=== PATIENT | female | born 1965 | race Caucasian/White ===

== ENCOUNTER 2018-02-27 16:16 | Observation (INO) ==
[2018-02-27] MEDS: 0.9 % Sodium Chloride 1,000 ML IVC ONE ×2 (16:49→19:14)
[2018-02-27] MEDS ORDERED: Ondansetron 4 MG/2 ML VIAL IVP ONE (16:50)
[2018-02-27] MEDS ORDERED: 0.9 % Sodium Chloride 1,000 ML IVC ONE ×3 (16:50→21:07)
--- NOTE | 2018-02-27 16:56 | Emergency Department Note ---
Disposition Clinical Impression: Dehydration Diabetic ketoacidosis Qualifiers: Diabetes mellitus type: type 2 Diabetes mellitus complication detail: without coma Qualified Code(s): E11.10 - Type 2 diabetes mellitus with ketoacidosis without coma Disposition: Admitted As Inpatient Condition: Serious Time of Disposition: 17:51 General Adult HPI - General Chief complaint: ED General Medical Stated complaint: HIGH BLOOD SUGAR Time Seen by Provider: 02/27/18 16:48 Source: patient, EMS Mode of arrival: EMS Limitations: no limitations Nursing Notes Reviewed: Yes Vital Signs Reviewed: Yes - History of Present Illness HPI Narrative: Patient with a history of diabetes who takes pills as well as Lantus. She is not been taking her medicine regularly for about 5 days. For the past couple of days she has been feeling sick and says her sugars have been running high. Pt Subjective Complaint: Vomiting and feeling weak Onset (ago): day(s) (Several days) Location: other (Generalized) Pain Scale: 10 Consistency: constant, Worsening Improves with: nothing Worsens with: nothing Associated symptoms: Reports: nausea/vomiting. Denies: fever/chills - Related Data Home Medications Medication Instructions Recorded Confirmed Glimepiride [Amaryl] 5 mg PO 0800 08/24/16 02/27/18 Alprazolam [Xanax] 2 mg PO BID 09/10/16 02/27/18 Metoprolol [Lopressor] 12.5 mg PO QAM 09/10/16 02/27/18 Quinapril HCl [Accupril] 20 mg PO QAM 09/10/16 02/27/18 Gabapentin [Neurontin] 100 mg PO HS 12/02/16 02/27/18 Dapagliflozin/Metformin HCl 1 each PO DAILY 04/26/17 02/27/18 [Xigduo Xr 10 mg-1,000 mg Tab] Cyclobenzaprine [Flexeril] 10 mg PO HS 08/28/17 02/27/18 Dulaglutide [Trulicity] 1.5 mg SQ QWEEK 08/28/17 02/27/18 Previous Rx's Medication Instructions Recorded Albuterol Sulfate [Albuterol 1 puff IH Q4HR #1 hfa.aer.ad 08/28/17 Inhaler] Benzonatate [Tessalon] 100 mg PO TID #15 capsule 08/28/17 Budesonide [Pulmicort Flexhaler 90 mcg IH DAILY #1 aer.pow.ba 08/28/17 90mcg] Ondansetron HCl [Zofran] 4 mg PO TID #15 tablet 08/28/17 Allergies Allergy/AdvReac Type Severity Reaction Status Date / Time Sulfa (Sulfonamide Allergy See Verified 02/27/18 16:19 Antibiotics) Comments metformin AdvReac Diarrhea Verified 02/27/18 16:19 All systems ED: reviewed and negative except as stated. Constitutional: Denies: fever, chills ENT ED: Denies: ear pain, throat pain, congestion Cardiovascular: Denies: chest pain, palpitations Respiratory: Reports: dyspnea (Mild). Denies: cough Gastrointestinal: Reports: nausea, vomiting. Denies: abdominal pain, diarrhea Genitourinary: Denies: urgency, dysuria Integumentary: Denies: rash Neurological: Reports: weakness (Generalized weakness). Denies: headache Endocrine: Reports: fatigue Past Medical History - Past Medical History Attestation: Yes The following information was validated with the patient. Source: patient, old records reviewed, nursing notes reviewed Medical history: Reports: arthritis, asthma, COPD, diabetes, GERD, hyperlipidemia, hypertension, other Surgical history: Reports: non-contributory Psychiatric history: Reports: depression - Social History Smoking Status: Never smoker Smokeless Tobacco Status: No Alcohol use: Reports: none Drug use: Reports: none Physical Exam - General Limitations: no limitations General appearance: lethargic, other (Patient is answering questions appropriately and following commands appropriately) - Head Head exam: atraumatic, normocephalic, normal inspection - Eye Eye exam: Present: normal appearance, PERRL, EOMI. Absent: scleral icterus, conjunctival injection - ENT ENT exam: mucous membranes dry, normal external ear exam - Neck Neck exam: Present: normal inspection, full ROM, trachea midline. Absent: meningismus - Chest Chest inspection: Present: normal inspection, symmetric chest wall rise. Absent : tenderness - Respiratory Respiratory exam: Present: normal lung sounds bilaterally. Absent: respiratory distress, wheezes - Cardiovascular Cardiovascular exam: Present: normal rhythm, tachycardia, normal heart sounds - Abdominal Exam Abdominal exam: Present: soft, Non-Tender, normal bowel sounds - Extremities Exam Extremities exam: Present: normal inspection. Absent: pedal edema - Neurological Exam Neurological exam: Present: alert (But sluggish), oriented X3 - Psychiatric Psychiatric exam: Present: normal affect, normal mood - Skin Skin exam: Present: warm, dry. Absent: rash Course Course Narrative: Patient presents feeling ill over the past couple of days with nausea and vomiting and generalized weakness. On physical exam shows very dry and she is a little bit sluggish in response. Accu-Chek was skyhigh. She looks like DKA. We will get a workup going. I am ordering IV fluids. We will evaluate for other possibilities as well. Disposition will be based on diagnostic results and reevaluation. - Reevaluation(s) Reevaluation #1: DKA is confirmed. Patient is gotten some IV fluids. We will start an insulin drip. I will talk to the hospitalist for admission. Time: 17:49 - Consultations Consultation #1: Dr. Guillory, hospitalist - I discussed the case with the hospitalist. He is accepting the patient for admission. Time: 17:50 Vital Signs Temperature 97.0 F L 02/27/18 16:21 Pulse Rate 112 02/27/18 16:21 Respiratory Rate 36 02/27/18 16:21 Blood Pressure 126/75 02/27/18 16:21 O2 Sat by Pulse Oximetry 99 02/27/18 16:21 Temperature 98.8 F 02/27/18 20:41 Pulse Rate 116 02/27/18 20:41 Respiratory Rate 18 02/27/18 20:41 Blood Pressure 112/61 02/27/18 20:41 O2 Sat by Pulse Oximetry 97 02/27/18 20:41 Oxygen Delivery Oxygen Delivery Room Air Medical Decision Making - Medical Records Medical records reviewed: Yes I reviewed the patient's medical records. - Lab Data Lab results reviewed: Yes I reviewed the patient's lab results. Result diagrams: 02/27/18 17:08 02/27/18 17: Lab Results 02/27/18 02/27/18 02/27/18 Range/Units 17:08 17:08 17:08 WBC 15.7 H (4.3-11.1) K/mcL RBC 4.95 (3.82-4.97) M/mcL Hgb 14.8 (11.5-15.4) g/dL Hct 46.2 H (35.3-44.9) % MCV 93.3 (83.0-100.0) fL MCH 29.9 (28.0-33.3) pg MCHC 32.0 (31.6-35.5) g/dL RDW 12.7 (11.5-14.5) % Plt Count 341 (140-400) K/mcL MPV 10.5 (9.4-12.4) fL Immature Gran % 5.7 H (0-4) % Seg Neutrophils % 72.2 % Lymphocytes % 9.4 % Monocytes % 12.1 % Eosinophils % 0.1 % Basophils % 0.5 % Neutrophils # 11.3 H (1.6-8.9) K/mcL Lymphocytes # 1.5 (0.6-4.6) K/mcL Monocytes # 1.9 H (0.0-1.3) K/mcL Eosinophils # 0.0 (0.0-0.6) K/mcL Basophils # 0.1 (0.0-0.2) K/mcL Toxic Granulation Present A (Not Present) Platelet Estimate Normal (Normal) Polychromasia 1+ A (Not Present) Anisocytosis 1+ A (Not Present) Sample Site ABG pH (7.32-7.45) pH Units ABG pCO2 (35-45) mmHg ABG pO2 (85-104) mmHg ABG HCO3 (21-27) mEq/L ABG Total CO2 (20-26) mEq/L ABG O2 Saturation (95-98) % ABG Base Excess (-2 to 3) mEq/L Tim Test O2 Delivery Device Sodium 137 (136-145) mEq/L Potassium 5.5 H (3.5-5.1) mEq/L Chloride 103 (98-107) mEq/L Carbon Dioxide 12 L (23-29) mEq/L BUN 49 H (6-20) mg/dL Creatinine 2.03 H (0.60-1.20) mg/dL Est GFR ( Amer) 31 L (> 60) Est GFR (Non-Af Amer) 26 L (> 60) BUN/Creatinine Ratio 24 (6-26) Glucose 920 H* (70-105) mg/dL Calculated Osmolality 343 H (280-300) Lactic Acid (0.5-2.2) mmol/L Calcium 10.2 (8.6-10.3) mg/dL Troponin I (< 0.04) ng/mL Beta-Hydroxybutyric Acd > 2.00 H (0.02-0.27) mmol/L Urine Color (Yellow) Urine Clarity (Clear) Urine pH (5.0-8.0) pH Units Ur Specific [place] (1.010-1.025) Urine Protein (Neg-Trace) mg/dL Urine Glucose (UA) (Normal) mg/dL Urine Ketones (Negative) mg/dL Urine Blood (Negative) Urine Nitrite (Negative) Urine Bilirubin (Negative) Urine Urobilinogen (Normal) mg/dL Ur Leukocyte Esterase (Negative) Urine Microscopic RBC (0-3) per hpf Urine Microscopic WBC (0-3) per hpf Ur Squamous Epith Cells (None-Few) per lpf Urine Bacteria (None-Few) per hpf Urine Yeast (None Seen) per hpf Ur Culture Indicated? (NO) Person Notif of Crit 02/27/18 02/27/18 02/27/18 Range/Units 17:08 17:08 17:13 WBC (4.3-11.1) K/mcL RBC (3.82-4.97) M/mcL Hgb (11.5-15.4) g/dL Hct (35.3-44.9) % MCV (83.0-100.0) fL MCH (28.0-33.3) pg MCHC (31.6-35.5) g/dL RDW (11.5-14.5) % Plt Count (140-400) K/mcL MPV (9.4-12.4) fL Immature Gran % (0-4) % Seg Neutrophils % % Lymphocytes % % Monocytes % % Eosinophils % % Basophils % % Neutrophils # (1.6-8.9) K/mcL Lymphocytes # (0.6-4.6) K/mcL Monocytes # (0.0-1.3) K/mcL Eosinophils # (0.0-0.6) K/mcL Basophils # (0.0-0.2) K/mcL Toxic Granulation (Not Present) Platelet Estimate (Normal) Polychromasia (Not Present) Anisocytosis (Not Present) Sample Site R Radial ABG pH 7.18 L* (7.32-7.45) pH Units ABG pCO2 29 L (35-45) mmHg ABG pO2 99 (85-104) mmHg ABG HCO3 11 L (21-27) mEq/L ABG Total CO2 12 L (20-26) mEq/L ABG O2 Saturation 96 (95-98) % ABG Base Excess -16 L (-2 to 3) mEq/L Tim Test Positive O2 Delivery Device Room Air Sodium (136-145) mEq/L Potassium (3.5-5.1) mEq/L Chloride (98-107) mEq/L Carbon Dioxide (23-29) mEq/L BUN (6-20) mg/dL Creatinine (0.60-1.20) mg/dL Est GFR ( Amer) (> 60) Est GFR (Non-Af Amer) (> 60) BUN/Creatinine Ratio (6-26) Glucose (70-105) mg/dL Calculated Osmolality (280-300) Lactic Acid 1.4 (0.5-2.2) mmol/L Calcium (8.6-10.3) mg/dL Troponin I < 0.03 (< 0.04) ng/mL Beta-Hydroxybutyric Acd (0.02-0.27) mmol/L Urine Color (Yellow) Urine Clarity (Clear) Urine pH (5.0-8.0) pH Units Ur Specific [place] (1.010-1.025) Urine Protein (Neg-Trace) mg/dL Urine Glucose (UA) (Normal) mg/dL Urine Ketones (Negative) mg/dL Urine Blood (Negative) Urine Nitrite (Negative) Urine Bilirubin (Negative) Urine Urobilinogen (Normal) mg/dL Ur Leukocyte Esterase (Negative) Urine Microscopic RBC (0-3) per hpf Urine Microscopic WBC (0-3) per hpf Ur Squamous Epith Cells (None-Few) per lpf Urine Bacteria (None-Few) per hpf Urine Yeast (None Seen) per hpf Ur Culture Indicated? (NO) Person Notif of Lana Jesus RN 02/27/18 Range/Units 17:46 WBC (4.3-11.1) K/mcL RBC (3.82-4.97) M/mcL Hgb (11.5-15.4) g/dL Hct (35.3-44.9) % MCV (83.0-100.0) fL MCH (28.0-33.3) pg MCHC (31.6-35.5) g/dL RDW (11.5-14.5) % Plt Count (140-400) K/mcL MPV (9.4-12.4) fL Immature Gran % (0-4) % Seg Neutrophils % % Lymphocytes % % Monocytes % % Eosinophils % % Basophils % % Neutrophils # (1.6-8.9) K/mcL Lymphocytes # (0.6-4.6) K/mcL Monocytes # (0.0-1.3) K/mcL Eosinophils # (0.0-0.6) K/mcL Basophils # (0.0-0.2) K/mcL Toxic Granulation (Not Present) Platelet Estimate (Normal) Polychromasia (Not Present) Anisocytosis (Not Present) Sample Site ABG pH (7.32-7.45) pH Units ABG pCO2 (35-45) mmHg ABG pO2 (85-104) mmHg ABG HCO3 (21-27) mEq/L ABG Total CO2 (20-26) mEq/L ABG O2 Saturation (95-98) % ABG Base Excess (-2 to 3) mEq/L Tim Test O2 Delivery Device Sodium (136-145) mEq/L Potassium (3.5-5.1) mEq/L Chloride (98-107) mEq/L Carbon Dioxide (23-29) mEq/L BUN (6-20) mg/dL Creatinine (0.60-1.20) mg/dL Est GFR ( Amer) (> 60) Est GFR (Non-Af Amer) (> 60) BUN/Creatinine Ratio (6-26) Glucose (70-105) mg/dL Calculated Osmolality (280-300) Lactic Acid (0.5-2.2) mmol/L Calcium (8.6-10.3) mg/dL Troponin I (< 0.04) ng/mL Beta-Hydroxybutyric Acd (0.02-0.27) mmol/L Urine Color Light Yellow (Yellow) Urine Clarity Slightly Cloudy A (Clear) Urine pH 5.0 (5.0-8.0) pH Units Ur Specific [place] <= 1.005 L (1.010-1.025) Urine Protein Negative (Neg-Trace) mg/dL Urine Glucose (UA) >=1000 H (Normal) mg/dL Urine Ketones 40 H (Negative) mg/dL Urine Blood Small H (Negative) Urine Nitrite Negative (Negative) Urine Bilirubin Small H (Negative) Urine Urobilinogen Normal (Normal) mg/dL Ur Leukocyte Esterase Negative (Negative) Urine Microscopic RBC 0-3 (0-3) per hpf Urine Microscopic WBC 3-5 H (0-3) per hpf Ur Squamous Epith Cells Few (None-Few) per lpf Urine Bacteria Few (None-Few) per hpf Urine Yeast Many H (None Seen) per hpf Ur Culture Indicated? NO (NO) Person Notif of Crit - Radiology Data Radiology results reviewed: Yes I reviewed the patient's radiology results. - EKG Data EKG #1 EKG attestation: Yes I reviewed and interpreted this EKG. EKG results narrative: Twelve-lead EKG performed at 1650 6 PM and interpreted by ED physician shows sinus tachycardia rate of 110. Normal axis. Good hour progression across precordium. No acute ischemic changes. Intervals are within normal limits. Critical Care Time Critical Care Time: Yes Total Critical Care Time: 30 Attestation: Diabetic ketoacidosis, insulin drip
[2018-02-27 17:16] LABS: Basophils # 0.1 K/mcL (0.0-0.2); Basophils % 0.5 %; Eosinophils % 0.1 %; Hematocrit 46.2 % (35.3-44.9); Hemoglobin 14.8 g/dL (11.5-15.4); Immature Granulocytes % 5.7 % (0-4); Lymphocytes # 1.5 K/mcL (0.6-4.6); Lymphocytes % 9.4 %; Mean Corpuscular Hemoglobin 29.9 pg (28.0-33.3); Mean Corpuscular Volume 93.3 fL (83.0-100.0); Mean Platelet Volume 10.5 fL (9.4-12.4); Monocytes # 1.9 K/mcL (0.0-1.3); Monocytes % 12.1 %; Neutrophils # 11.3 K/mcL (1.6-8.9); Platelet Count 341 K/mcL (140-400); Red Blood Count 4.95 M/mcL (3.82-4.97); Red Cell Distribution Width 12.7 % (11.5-14.5); Segmented Neutrophils % 72.2 %
[2018-02-27 17:18] LABS: ABG Base Excess -16 mEq/L (-2 to 3); ABG HCO3 11 mEq/L (21-27); ABG Oxygen Saturation 96 % (95-98); ABG PCO2 29 mmHg (35-45); ABG PH 7.18 pH Units (7.32-7.45); ABG PO2 99 mmHg (85-104); ABG TCO2 12 mEq/L (20-26)
[2018-02-27 17:44] LABS: Calcium 10.2 mg/dL (8.6-10.3); Potassium 5.5 mEq/L (3.5-5.1)
[2018-02-27 17:51] LABS: Bilirubin,Urine Small (Negative); Blood,Urine Small (Negative); Clarity,Urine Slightly Cloudy (Clear); Glucose,Urine (UA) >=1000 mg/dL (Normal); Ketones,Urine 40 mg/dL (Negative); Leukocyte Esterase,Urine Negative (Negative); Nitrite,Urine Negative (Negative); Protein,Urine Negative (Neg-Trace); Specific Gravity,Urine <= 1.005 (1.010-1.025); Urobilinogen,Urine Normal (Normal)
[2018-02-27] MEDS ORDERED: *HR* Dextrose 50 % in Water (Syg) 50 ML SYRINGE IVP PRN ×4 (17:51→21:07)
[2018-02-27 17:52] LABS: Anisocytosis 1+ (Not Present); Platelet Estimate Normal (Normal); Polychromasia 1+ (Not Present); Toxic Granulation Present (Not Present)
[2018-02-27 17:53] LABS: Color,Urine Light Yellow (Yellow)
[2018-02-27 17:58] LABS: Bacteria,Urine Few per hpf (None-Few); RBC,Urine 0-3 per hpf (0-3); Squamous Epithelial Cell,Urine Few per lpf (None-Few); Yeast,Urine Many per hpf (None Seen)
[2018-02-27] MEDS ORDERED: Insulin Human Regular 100 UNIT in 0.9 % Sodium Chloride 100 ML IVC SCH ×4 (18:00→21:07)
[2018-02-27] MEDS ORDERED: D5% in Water 1,000 ML IVC PRN ×2 (21:01→21:07)
[2018-02-27] MEDS ORDERED: Dextrose Gel 15 GM/37.5 ML TUBE PO PRN ×4 (21:01→21:07)
[2018-02-27] MEDS ORDERED: Insulin Regular, Human 100 UNIT/ML IV PRN (21:07)
[2018-02-27] MEDS ORDERED: Naloxone 0.4 MG/ML INJ IVP PRN (21:07)
[2018-02-28] MEDS: 0.45 % Sodium Chloride w/KCl 20 MEQ/1,000 ML MLS IVC SCH ×3 (00:40→07:13)
[2018-02-28] MEDS ORDERED: 0.45 % Sodium Chloride w/KCl 20 MEQ/1,000 ML MLS IVC SCH (00:45)
[2018-02-28 04:19] LABS: Hematocrit 43.2 % (35.3-44.9); Hemoglobin 14.1 g/dL (11.5-15.4); Mean Corpuscular HGB Conc 32.6 g/dL (31.6-35.5); Mean Corpuscular Hemoglobin 30.1 pg (28.0-33.3); Mean Corpuscular Volume 92.1 fL (83.0-100.0); Platelet Count 299 K/mcL (140-400); Red Blood Count 4.69 M/mcL (3.82-4.97); Red Cell Distribution Width 12.7 % (11.5-14.5)
[2018-02-28 05:04] LABS: Albumin 4.4 g/dL (3.5-5.7); Albumin/Globulin Ratio 1.4 (1.1-2.2); Bilirubin,Total 0.4 mg/dL (0.3-1.0); Globulin 3.2 g/dL (2.4-3.5); Magnesium 2.9 mg/dL (1.6-2.6); Phosphorous 1.9 mg/dL (2.7-4.5); Potassium 4.3 mEq/L (3.5-5.1); Total Protein 7.6 g/dL (6.4-8.9)
[2018-02-28] MEDS ORDERED: Insulin LISPRO 300 UNITS/3 ML VIAL SQ SCH ×5 (07:30→21:00)
[2018-02-28 07:35] LABS: Anisocytosis 1+ (Not Present); Hypochromasia Present (Not Present); Lymphocytes # 1.3 K/mcL (0.6-4.6); Monocytes # 1.7 K/mcL (0.0-1.3); Neutrophils # 13.1 K/mcL (1.6-8.9); Platelet Estimate Normal (Normal); Reactive Lymphocytes Present (Not Present)
[2018-02-28 07:38] LABS: Polychromasia 1+ (Not Present); Toxic Granulation Present (Not Present)
[2018-02-28] MEDS ORDERED: Lisinopril 20 MG TABLET PO SCH (09:00)
[2018-02-28] MEDS: Insulin LISPRO 300 UNITS/3 ML VIAL SQ SCH ×3 (09:17→16:57)
--- NOTE | 2018-02-28 12:09 | Internal Med History&Physical ---
Date of Encounter: 02/28/18 Time of Encounter: 11:35 Assessment and Plan (1) Diabetic ketoacidosis Current visit: Yes Status: Acute She was started on DKA protocol through emergency room. Blood sugars have improved. Qualifiers: Diabetes mellitus type: type 2 Diabetes mellitus complication detail: without coma Qualified Code(s): E11.10 - Type 2 diabetes mellitus with ketoacidosis without coma (2) Acute renal failure Current visit: Yes Status: Acute Creatinine has decreased to 1.34 since admission. Continue IV fluids. Qualifiers: Acute renal failure type: unspecified Qualified Code(s): N17.9 - Acute kidney failure, unspecified (3) Leukocytosis Current visit: Yes Status: Acute Etiology not obvious. Chest x-ray was unremarkable and UA showed little evidence for UTI. Will draw blood cultures and treat empirically for bacterial meningitis and do further workup. Qualifiers: Leukocytosis type: unspecified Qualified Code(s): D72.829 - Elevated white blood cell count, unspecified (4) Hypophosphatemia Current visit: Yes Status: Acute Will give phosphorus replacement. Internal Medicine - H&P: HPI Chief complaint: Lethargy, vomiting, DKA Admitted From: Emergency Dept Plans for Post Hospital Care: Home History of present illness: Ms. Vargas is a 52 year old female who was brought to emergency room by family stating she had decreased oral intake with vomiting on February 25. She was noted to be lethargic the following day and had additional vomiting. On the day of admission she was noted by family to have slurred speech and increased weakness and confusion. She was brought to emergency room and evaluated and found to have diabetic ketoacidosis. She was admitted to [facility] floor for ongoing care needs. She states she was diagnosed with DM 2 at age 34. She reports checking her blood sugars daily but does not recall range of readings. She denies previous episodes of DKA. She denies pain or dyspnea at this time. She denies recent fevers chills cough or diarrhea. Endocrine history is negative for known thyroid disease or hyperlipidemia. Past Med Surg Social Fam HX - Past Medical History Medical history: arthritis, asthma, COPD, diabetes, GERD, hyperlipidemia, hypertension, other Additional medical history: SVT, TYPE 2, Psychiatric history: depression - Past Surgical History Surgical History: non-contributory Additional surgical history: ablation of heart. lithotripsy - Social History Smoking Status: Never smoker Smokeless Tobacco Status: No Alcohol use: none Drug use: none Internal Medicine - H&P: Meds Glimepiride [Amaryl] 5 mg PO 0800 08/24/16 [History] Alprazolam [Xanax] 2 mg PO BID 09/10/16 [History] Metoprolol [Lopressor] 12.5 mg PO QAM 09/10/16 [History] Quinapril HCl [Accupril] 20 mg PO QAM 09/10/16 [History] Gabapentin [Neurontin] 100 mg PO HS 12/02/16 [History] Dapagliflozin/Metformin HCl [Xigduo Xr 10 mg-1,000 mg Tab] 1 each PO DAILY 04/26 [History] Albuterol Sulfate [Albuterol Inhaler] 1 puff IH Q4HR #1 hfa.aer.ad 08/28/17 [Rx] Benzonatate [Tessalon] 100 mg PO TID #15 capsule 08/28/17 [Rx] Budesonide [Pulmicort Flexhaler 90mcg] 90 mcg IH DAILY #1 aer.pow.ba 08/28/17 [ Rx] Cyclobenzaprine [Flexeril] 10 mg PO HS 08/28/17 [History] Dulaglutide [Trulicity] 1.5 mg SQ QWEEK 08/28/17 [History] Ondansetron HCl [Zofran] 4 mg PO TID #15 tablet 08/28/17 [Rx] 3 Allergy/AdvReac Type Severity Reaction Status Date / Time Sulfa (Sulfonamide Allergy See Verified 02/27/18 16:19 Antibiotics) Comments metformin AdvReac Diarrhea Verified 02/27/18 16:19 All Systems PM: A 10-system review of systems was performed and is negative for pertinent findings except as documented above in the HPI. Review of systems: Gen.: She states her weight has been stable the past year Cardiovascular: She has history of hypertension but denies IL heart failure angina DVT or pulmonary embolus Respiratory: She is a lifelong nonsmoker and has no chronic lung disease. GI: She has had cholecystectomy. She denies disorders of her liver or exocrine pancreas : She has had multiple kidney stones. She denies other kidney or bladder disorders. Neurologic: She denies large distribution strokes or seizures. Endocrine: As per history of present illness Hematology/oncology: She denies blood disorders cancers or anemia Psychiatric: She denies anxiety depression or other mental health issues. [place] skeletal: She has restless leg syndrome. She denies other bone joint or muscle disorders. - Constitutional Vitals: Temp Pulse Resp BP Pulse Ox 98.4 F 109 16 128/69 99 02/28/18 11:02 02/28/18 11:02 02/28/18 11:02 02/28/18 11:02 02/28/18 11:02 Exam: Gen.: She is a well-developed well-nourished female lying in bed who denies pain or dyspnea at rest. HEENT: Head is atraumatic and normal cephalic. Eyes: EOMI. There is no scleral icterus. Mouth: Mucosa is moist. Neck: She complains of pain on flexion of neck. There is no thyromegaly or adenopathy noted. Heart: Regular without murmurs gallops or ectopics Lungs: No wheezes or crackles are heard. Abdomen: Soft and nontender. No masses or guarding are noted. Extremities: There is no cyanosis edema or clubbing noted. Dorsalis pedis and posttibial pulses are trace to 1+ palpable bilaterally. Neurologic: Mental status: She is awake but lethargic. Her answers to questions are very slow. She has difficulty concentrating and answering questions. Cranial nerves: Smile is symmetric. Forehead wrinkles bilaterally. Tongue protrudes midline. EOMI. Motor: There is no pronator drift. She is able to lift both legs off the bed. Cerebellar: Finger to nose is intact bilaterally. Skin: Warm and dry Internal Med - H&P Results - Labs CBC & Chem 7: 02/28/18 04:05 02/28/18 04:05 Labs: Short CBC 02/28/18 Range/Units 04:05 WBC 16.8 H (4.3-11.1) K/mcL Hgb 14.1 (11.5-15.4) g/dL Hct 43.2 (35.3-44.9) % Plt Count 299 (140-400) K/mcL Neutrophils # 13.1 H (1.6-8.9) K/mcL BMP 02/28/18 04:05 Sodium 157 H D Potassium 4.3 Chloride 122 H Carbon Dioxide 19 L BUN 42 H Creatinine 1.34 H Glucose 253 H Calcium 10.0 Liver Function 02/28/18 Range/Units 04:05 Total Bilirubin 0.4 (0.3-1.0) mg/dL AST 14 (13-39) Units/L ALT 20 (7-52) Units/L Alkaline Phosphatase 31 L (34-104) Units/L Albumin 4.4 (3.5-5.7) g/dL
[2018-02-28] MEDS ORDERED: Dexamethasone 10 MG/ML VIAL IVP ONE (12:17)
[2018-02-28 12:53] LABS: Basophils % 0.2 %; Hematocrit 38.9 % (35.3-44.9); Hemoglobin 12.7 g/dL (11.5-15.4); Immature Granulocytes % 2.2 % (0-4); Lymphocytes # 0.8 K/mcL (0.6-4.6); Lymphocytes % 6.3 %; Mean Corpuscular HGB Conc 32.6 g/dL (31.6-35.5); Mean Corpuscular Hemoglobin 29.4 pg (28.0-33.3); Mean Platelet Volume 10.1 fL (9.4-12.4); Monocytes # 0.9 K/mcL (0.0-1.3); Monocytes % 7.3 %; Platelet Count 280 K/mcL (140-400); Red Blood Count 4.32 M/mcL (3.82-4.97)
[2018-02-28 12:54] LABS: Neutrophils # 10.2 K/mcL (1.6-8.9)
[2018-02-28] MEDS ORDERED: Acyclovir 750 MG in D5% in Water 250 ML IVPB SCH (13:00)
[2018-02-28] MEDS ORDERED: cefTRIAXone 2,000 MG in Water for inj. (sterile) 20 ML 20 ML IVP SCH (13:00)
[2018-02-28 13:15] LABS: BUN/Creatinine Ratio 34 (6-26); Blood Urea Nitrogen 35 mg/dL (6-20); Calcium 8.9 mg/dL (8.6-10.3); Carbon Dioxide 18 mEq/L (23-29); Chloride 117 mEq/L (98-107); Glucose 285 mg/dL (70-105); Osmolality,Calculated 326 (280-300); Potassium 4.1 mEq/L (3.5-5.1); Sodium 149 mEq/L (136-145); eGFR For Non-African Americans 57 (> 60)
[2018-02-28] MEDS ORDERED: *HR* HYDROcodone/Acet 5/325 mg TABLET PO PRN (17:36)
--- NOTE | 2018-02-28 18:53 | Discharge Summary ---
Orders not resulted at time of discharge: Pending orders 02/28/18 12:46 Culture,Blood [BC] Stat Date of Encounter: 02/28/18 Time of Encounter: 18:45 - Discharge Diagnosis (1) Diabetic ketoacidosis Priority: Primary Status: Acute Qualifiers: Diabetes mellitus type: type 2 Diabetes mellitus complication detail: without coma Qualified Code(s): E11.10 - Type 2 diabetes mellitus with ketoacidosis without coma (2) Acute renal failure Priority: Secondary Status: Acute Qualifiers: Acute renal failure type: unspecified Qualified Code(s): N17.9 - Acute kidney failure, unspecified (3) Leukocytosis Priority: Secondary Status: Acute Qualifiers: Leukocytosis type: unspecified Qualified Code(s): D72.829 - Elevated white blood cell count, unspecified (4) Hypophosphatemia Priority: Secondary Status: Acute Hospital course: Ms. Vargas is a 52 year old female who was brought to emergency room by family stating she had decreased oral intake with vomiting on February 25. She was noted to be lethargic the following day and had additional vomiting. On the day of admission she was noted by family to have slurred speech and increased weakness and confusion. She was brought to emergency room and evaluated and found to have diabetic ketoacidosis. She was admitted to [facility] for ongoing care needs. Initial orders were written by the emergency room physician. I saw her on February 28 and performed a history and physical. She was started on DKA protocol through emergency room. Blood sugars were improved at time I saw her. I was concerned about her lethargy, pain on neck flexion, and complaints of headache. Head CT was ordered and showed no acute pathology. In view of her leukocytosis with left shift and altered mental status I felt she possibly had meningitis or encephalitis. She was started empirically on Rocephin, vancomycin , IV Decadron and acyclovir. Contact was made with [facility] and arrangements were complete the afternoon of February 28 for her to be transferred for ongoing workup and treatment. - Time Spent with Patient Total time spent providing and/or coordinating discharge services: - Discharge Medications Home Medications: Glimepiride [Amaryl] 5 mg PO 0800 08/24/16 [History] Alprazolam [Xanax] 2 mg PO BID 09/10/16 [History] Metoprolol [Lopressor] 12.5 mg PO QAM 09/10/16 [History] Quinapril HCl [Accupril] 20 mg PO QAM 09/10/16 [History] Gabapentin [Neurontin] 100 mg PO HS 12/02/16 [History] Dapagliflozin/Metformin HCl [Xigduo Xr 10 mg-1,000 mg Tab] 1 each PO DAILY 04/26 [History] Albuterol Sulfate [Albuterol Inhaler] 1 puff IH Q4HR #1 hfa.aer.ad 08/28/17 [Rx] Benzonatate [Tessalon] 100 mg PO TID #15 capsule 08/28/17 [Rx] Budesonide [Pulmicort Flexhaler 90mcg] 90 mcg IH DAILY #1 aer.pow.ba 08/28/17 [ Rx] Cyclobenzaprine [Flexeril] 10 mg PO HS 08/28/17 [History] Dulaglutide [Trulicity] 1.5 mg SQ QWEEK 08/28/17 [History] Ondansetron HCl [Zofran] 4 mg PO TID #15 tablet 08/28/17 [Rx] Allergies/Adverse Reactions: 3 Allergy/AdvReac Type Severity Reaction Status Date / Time Sulfa (Sulfonamide Allergy See Verified 02/27/18 16:19 Antibiotics) Comments metformin AdvReac Diarrhea Verified 02/27/18 16:19 Date of admission: 02/27/18 18:10 Primary care physician: Dallin Ty DO Consults: 02/27/18 21:46 Consult to Pastoral Services [CONS] Routine Comment: - Constitutional Vitals: Temp Pulse Resp BP Pulse Ox 99.1 F 109 16 126/68 98 02/28/18 16:07 02/28/18 16:07 02/28/18 16:07 02/28/18 16:07 02/28/18 16:07 - Patient Status Disposition: Transfer Other Condition: Serious - Discharge Instructions
--- NOTE | 2018-02-28 18:57 | Electrocardiograph Report ---
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
[2018-02-28 19:30] VITALS: BP 118/77
== END 2018-02-28 20:26 | disposition other institution (70) ==
LOC: INPPIK 16:16 → EMEROOPIK 16:16 → INPPIK 20:29
PROVIDERS: ADMIT Internal Medicine; ATTEND Internal Medicine